=== PATIENT | female | born 1980 | race Caucasian/White ===

== ENCOUNTER 2019-05-30 15:23 | Inpatient (IN) | payer OTHER ==
[~2019-05-30] VITALS: Ht 162.6 cm; Wt 61.9 kg
[2019-05-30 15:35] VITALS: Ht 162.6 cm; Wt 61.9 kg
--- NOTE | 2019-05-30 15:47 | NUR ---
PT RESTING IN BED, AAOX4 WITH NO COMPLAINTS AT THIS TIME. PT STATES SHE WAS TOLD BY HER PCP TO COME TO HOSPITAL DUE TO ABNOMRAL LABS THAT SHE RECENTLY HAD DONE. PT HAS NO SIGNS OF DISTRESS AT THIS TIME.
[2019-05-30 15:49] LABS: microscopic required? NO
[2019-05-30 15:58] LABS: UA SPECIFIC GRAVITY 1.025 (1.005-1.035); urine erythrocyte NEGATIVE (NEGATIVE)
[2019-05-30 16:12] LABS: CALCIUM 8.4 mg/dL (8.5-10.1); CARBON DIOXIDE 23.6 mmol/L (21-32); CHLORIDE SERUM 104 mmol/L (98-107); CREATININE SERUM 0.6 mg/dL (0.6-1.0); GFR1 > 60 mL/min; GLUCOSE SERUM 99 mg/dL (74-106); POTASSIUM SERUM 3.6 mmol/L (3.5-5.1); SODIUM SERUM 140 mmol/L (136-145)
[2019-05-30 16:19] LABS: ALBUMIN 4.1 g/dL (3.4-5.0); ALKALINE PHOSPHATASE 72 U/L (46-116); ALT/SGPT 21 U/L (14-59); AST/SGOT 18 U/L (15-37); BILIRUBIN TOTAL 0.4 mg/dL (0.20-1.00)
[2019-05-30 16:23] LABS: PLATELET COUNT 444 x10^3mcL (130-400); RED CELL DISTRIBUTION WIDTH 21.2 % (11.5-14.5)
[2019-05-30 16:37] LABS: BAND NEUTROPHIL 2 % (0-10); BASOPHIL 0 % (0-2); MONOCYTE 3 % (0-7); SEGMENTED NEUTROPHILS 79 % (37-75)
[2019-05-30 16:39] LABS: rbc morphology (normal/abnorm) ABNORMAL (NORMAL)
[2019-05-30 16:40] LABS: schistocyte (helmet cell) 1+
--- NOTE | 2019-05-30 18:22 | NUR ---
Pt hemodynamically stable and resting comfortably, no distress noted, call light within reach, pt aware of ED process, will continue to monitor.
--- NOTE | 2019-05-30 18:23 | NUR ---
x-ray at bedside.
[2019-05-30 18:40] LABS: RED BLOOD CELLS 4.4 M/mm3 (4.10-5.10)
[2019-05-30 18:46] LABS: TOTAL IRON BINDING CAPACITY 439 ug/dL (250-450)
[2019-05-30 19:05] LABS: CHOLESTEROL/HDL RATIO 2.4; IRON 5 ug/dL (50-170)
--- NOTE | 2019-05-30 19:13 | NUR ---
SBAR REPORT GIVEN PEGGY CHRISTOHPER TO ASSUME PT CARE, ALL QUESTIONS ANSWERED AT THIS TIME.
--- NOTE | 2019-05-30 19:14 | NUR ---
PT OFF FLOOR FOR ULTRASOUND.
--- NOTE | 2019-05-30 19:15 | NUR ---
APPROX 30 MIN FOR [facility] TO BE READY PER BLOOD BANK.
[2019-05-30 19:26] LABS: T3 TOTAL 0.98 ng/mL
[2019-05-30 19:28] LABS: FREE T4 0.9 ng/dL (0.76-1.46); FREE THYROXINE INDEX 1.8 ug/dL (1.4-4.5); T4(THYROXINE) 5.4 ug/dL (4.7-13.3)
--- NOTE | 2019-05-30 19:47 | NUR ---
PT REPORT CALLED TO [facility] TO ASSUME PT CARE.
[2019-05-30 19:55] LABS: AMPHETAMINE QUAL UR NONE DETECTED (See below)
--- NOTE | 2019-05-30 19:55 | NUR ---
PT TRANSFERRED TO [facility] BY [facility] BY [address] AND JOHN RN. PT ON FULL CM FOR TRANSPORT. PT AOX4, RESP EVEN AND UNLABORED, NO ACUTE DISTRESS NOTED. PT AMBULATED FROM [facility] TO BED WITHOUT INCIDENT. PT ACCEPTED BY [facility] TO ASSUME PT CARE.
[2019-05-30 20:12] VITALS: BP 113/33
[2019-05-30 20:15] VITALS: BP 99/47
--- NOTE | 2019-05-30 20:16 | NUR ---
RECEIVED PT FROM ED WITH CC ABNORMAL LABS. PT STATED SHE HAD LABS DONE AND RECEIVED CALL FROM PCP INSTRUCTING HER TO GO TO ED. PT IS AAOX4. RESP EVEN AND UNLABORED ON RA. NSR ON TELE MONITOR. DENIES CP OR PRESSURE. BOWEL SOUNDS ACTIVE, ABDOMEN SOFT, NONTENDER. REPORTS 2 LOOSE STOOLS TODAY. ALSO REPORTS SOME URINARY HESITANCY THAT SHE HAS BEEN EXPERIENCING FOR MONTHS. IV TO LAC, NO REDNESS OR SWELLING NOTED. AMBULATORY. PULSES PALPABLE ON ALL EXTREMITIES. SKIN C/D/I. ORIENTED TO ROOM AND SURROUNDINGS. HOB ELEVATED. BED IN LOW POSITION, CALL LIGHT WITHIN REACH. PRIMARY RN FREDO AT BEDSIDE FOR CONTINUITY OF CARE.
--- NOTE | 2019-05-30 20:36 | NUR ---
PT STATED SHE IS UNSURE IF SHE WANTS THE BLOOD TRANSFUSION. INFORMED DR. REYEZ, WHO IS NOW IN PT'S ROOM SPEAKING WITH PT
--- NOTE | 2019-05-30 21:00 | NUR ---
PT STATED SHE DR. REYEZ HAS EXPLAINED PURPOSE AND RISKS OF BLOOD TRANSFUSION. PT STATED SHE AGREES TO THE BLOOD TRANSFUSION. WITNESSED PT SIGN CONSENT FOR BLOOD TRANSFUSION. FLUSHED 20G IV TO LEFT AC, FLUSHED WELL.
[2019-05-30 21:36] VITALS: BP 103/51
--- NOTE | 2019-05-30 21:42 | NUR ---
CONSENT VERIFIED. PRE-TRANSFUSION VITAL SIGNS T99.1F, UT 90, RR 20, BP 103/51, RR 20, O2 SAT 99% ON RA. VERIFIED PT AND [facility] UNIT #[id number] [facility] NURSE MAEGAN. STARTED TRANSFUSION AT SLOW RATE OF 60ML/HR FOR 15 MINUTES.
--- NOTE | 2019-05-30 21:51 | NUR ---
INSTRUCTED NEED STOOL SPECIMEN, VERBALIZED UNDERSTANDING
--- NOTE | 2019-05-30 21:56 | NUR ---
VITAL SIGNS AFTER 15 MINUTES T 99.2F, OK 81, RR 20, BP 100/46, O2 SAT 98% ON ROOM AIR, NO SIGNS AND SYMPTOMS OF TRANSFUSION REACTIONS. INCREASED TRANSFUSION RATE TO 100ML/HR.
--- NOTE | 2019-05-30 22:45 | NUR ---
NO TRANSFUSION REACTIONS NOTED. CONTINUING [facility] INFUSION. IV SITE TO LEFT AC FREE FROM REDNESS OR SWELLING.
--- NOTE | 2019-05-30 23:34 | NUR ---
[facility] INFUSING WELL. NO REDNESS OR SWELLING NOTED TO IV SITE. NO COMPLAINTS OF PAIN OR SHORTNESS OF BREATH.
--- NOTE | 2019-05-31 00:48 | NUR ---
blood transfusion completed. no transfusion reactions noted. iv site to left ac free from redness or swelling, flushed with 8ml ns. post transfusion vital signs t 99.1f, pr 68, rr 18, bp 100/48, o2 sat 98% on room air.
[2019-05-31 00:49] VITALS: BP 100/48
--- NOTE | 2019-05-31 01:51 | NUR ---
eyes closed, breathing even and unlabored on room air. call light within easy reach.
[2019-05-31 05:08] VITALS: BP 95/51
[2019-05-31 06:39] LABS: CALCIUM 8.5 mg/dL (8.5-10.1); CHLORIDE SERUM 107 mmol/L (98-107); CREATININE SERUM 0.6 mg/dL (0.6-1.0); GFR1 > 60 mL/min; GLUCOSE SERUM 88 mg/dL (74-106); MAGNESIUM 2.3 mg/dL (1.8-2.4); SODIUM SERUM 141 mmol/L (136-145)
[2019-05-31 07:13] LABS: PLATELET COUNT 408 x10^3mcL (130-400); RED CELL DISTRIBUTION WIDTH 26.8 % (11.5-14.5)
--- NOTE | 2019-05-31 07:15 | NUR ---
AWAKE AND ALERT, ASYMPTOMATIC. BREATHING EVEN AND UNLABORED. CALL LIGHT WITHIN EASY REACH. ENDORSED TO NURSE MARI
--- NOTE | 2019-05-31 08:04 | NUR ---
0725: REPORT TAKEN FROM PSYCHOLOGICAL OPERATIONS NURSE AT THE BEDSIDE, PATIENT AWAKE AND ALERT, DENIED ABD PAIN, DIZZINESS OR FATIGUE, ABLE TO MAKE NEEDS KNOWN, OB STOOL COLLECTED AND SENT TO LAB, WILL CONTINUE TO MONITOR.
--- NOTE | 2019-05-31 08:59 | NUR ---
0845: PATIENT REPORTS THAT SHE WANTS TO LEAVE TO GO TO PCP APPOINTMENT. PATIENT VERBALIZED THAT SHE KNOWS SHE NEEDS SURGERY AND WANTS TO GO HOME TO RESEARCH PROCEDURE. PATIENT TOOK HER OWN IV OU AND REMOVED TELE. PATIENT ADVISED BY MYSELF THAT I WILL NOTIFY HER PROVIDER. THE PATIENT WAS ADVISED TO WAIT IN HER ROOM UNTIL THE DOCTOR COULD COME SPEAK TO HER, PROVIDER PAGED TWICE, CHARGE NURSE MADE AWARE AND SPOKE TO PATIENT WELL, WILL CONTINUE TO MONITOR.
--- NOTE | 2019-05-31 09:15 | NUR ---
PROVIDER MET WITH THE PATIENT AT THE BEDSIDE, DISCUSSED RISKS OF LEAVING BEFORE MEDICAL CLEARANCE, PATIENT VERBALIZED UNDERSTANDING, SIGNED AMA, WRIST BANDS REMOVED, PATIENT AMBULATORY TO EXIT.
[2019-05-31 10:35] LABS: BAND NEUTROPHIL 1 % (0-10); BASOPHIL 0 % (0-2); MONOCYTE 6 % (0-7); SEGMENTED NEUTROPHILS 69 % (37-75); rbc morphology (normal/abnorm) ABNORMAL (NORMAL)
[2019-05-31 10:36] LABS: PLATELET MORPHOLOGY GIANT PLATELET SEEN; ovalocyte/elliptocyte 1+; target cell (codocyte) 2+
== END 2019-05-31 09:18 | disposition left against medical advice (07) | DRG 812 ==
LOC: ED 15:23 → MU 18:08 → DU 18:08 → MU 19:55 → DU 05-31 05:42
PROVIDERS: Emergency Medicine; ADMIT Student in an Organized Health Care Education/Training Program
PROC: 30233N1 Transfusion of Nonautologous Red Blood Cells into Peripheral Vein, Percutaneous Approach (ICD-10-PCS; principal; 2019-05-30)
DX: D50.9 Iron deficiency anemia, unspecified (principal); D47.3 Essential (hemorrhagic) thrombocythemia; D25.9 Leiomyoma of uterus, unspecified; F12.20 Cannabis dependence, uncomplicated; Z68.23 Body mass index [BMI] 23.0-23.9, adult
CPT/HCPCS: 84439; G0378; J7050; P9016; Q0092; Q0163